=== PATIENT | female | born 1995 | race Hispanic/Latino ===

== ENCOUNTER 2020-12-13 10:36 | Outpatient (CLI) | payer OTHER | END 2020-12-13 10:37 | disposition home or self-care (01) | LOC: CSHULT 10:36 | PROVIDERS: ATTEND Family Medicine | DX: Z34.82 Encounter for supervision of other normal pregnancy, second trimester (principal) | CPT/HCPCS: 76805 ==

== ENCOUNTER 2021-04-25 17:56 | Inpatient (IN) | payer MEDICAID, OTHER, SELFPAY ==
[2021-04-25 18:28] VITALS: BMI 26.2
[2021-04-25] MEDS ORDERED: hydrALAZINE 20 MG/ML VIAL SLOW IVP PRN (19:06)
[2021-04-25] MEDS ORDERED: Ibuprofen 800 MG TAB PO PRN (19:06)
[2021-04-25] MEDS ORDERED: Butorphanol Tartrate 1 MG/ML VIAL SLOW IVP PRN (19:06)
[2021-04-25] MEDS ORDERED: Promethazine HCl 25 MG/ML VIAL IM PRN (19:06)
[2021-04-25] MEDS ORDERED: Carboprost 250 MCG/ML AMP IM PRN (19:06)
[2021-04-25] MEDS ORDERED: HYDROcodone/Acetaminophen 5/325 mg Tablet PO PRN ×2 (19:06)
[2021-04-25] MEDS ORDERED: Ondansetron PF 4 MG/2 ML Vial IVP PRN (19:06)
[2021-04-25] MEDS ORDERED: Misoprostol 200 MCG TAB PR PRN (19:06)
[2021-04-25] MEDS ORDERED: Diphenoxylate HCl/Atropine Tablet PO PRN ×2 (19:06)
[2021-04-25] MEDS ORDERED: Acetaminophen 500 MG TAB PO PRN (19:06)
[2021-04-25] MEDS ORDERED: Lidocaine 1% (PF) 30 ML VIAL SC PRN (19:06)
[2021-04-25] MEDS ORDERED: Methylergonovine 0.2 MG/ML VIAL IM PRN (19:06)
[2021-04-25] MEDS ORDERED: Lactated Ringer's 1,000 ML IV SCH (19:15)
[2021-04-25] MEDS ORDERED: NS w/ Oxytocin 30 units 500 ML ONE (19:34)
[2021-04-25] MEDS ORDERED: Fentanyl 2 mcg/Bup 0.1% Cadd 0 ML ONE (20:12)
[2021-04-25 20:20] LABS: Hemoglobin 12.6 g/dL (12.0-15.5); Mean Corpuscular HGB CONC 31.7 g/dL (32.0-36.0); Mean Corpuscular Hemoglobin 27.5 pg (27.0-33.0); Mean Corpuscular Volume 86.5 fl (81.6-98.3); Mean Platelet Volume 11.4 fl (7.4-10.4); Platelet Count 222 10x3/uL (150-450); RBC Distribution Width 13.6 % (11.5-14.5); Red Blood Cell (RBC) Count 4.59 10x6/uL (3.90-5.03); White Blood Cell (WBC) Count 12.6 10x3/uL (3.5-10.5)
[2021-04-25] MEDS ORDERED: Misoprostol 200 MCG TAB ONE (20:20)
[2021-04-25] MEDS ORDERED: Methylergonovine 0.2 MG/ML VIAL ONE (20:20)
[2021-04-25] MEDS ORDERED: Lidocaine 1% (PF) 30 ML VIAL ONE (20:20)
[2021-04-25] MEDS: NS w/ Oxytocin 30 units 500 ML IV SCH ×2 (20:32→22:38)
[2021-04-25 20:54] LABS: Hep B Surf Ag Non-Reactive S/CO (NonReactive); Syphilis Antibody Nonreactive (Nonreactive); Syphilis Antibody Index 0.03 S/CO (<1.00 Non-Reactive)
[2021-04-25 20:55] LABS: HBSAg Index 0.12 S/CO (0-0.99)
[2021-04-25 23:26] LABS: SARS-CoV-2 NAA Rapid Test Not Detected (NotDetected)
[2021-04-26] MEDS ORDERED: Milk Of Magnesia 30 ML UDCUP PO PRN (00:17)
[2021-04-26] MEDS: Ibuprofen 800 MG TAB PO SCH ×4 (00:17→21:28)
[2021-04-26] MEDS ORDERED: Lanolin Ointment 7 GM TUBE TOP PRN (00:17)
[2021-04-26] MEDS ORDERED: NS w/ Oxytocin 30 units 500 ML IV SCH (00:17)
[2021-04-26] MEDS ORDERED: Benzocaine-Menthol 82.5 ML CAN TOP PRN (00:17)
[2021-04-26] MEDS: Docusate Calcium (SURFAK) 240 MG CAP PO SCH ×3 (00:17→21:28)
[2021-04-26] MEDS ORDERED: HYDROcodone/Acetaminophen 5/325 mg Tablet PO PRN ×2 (00:17)
[2021-04-26] MEDS ORDERED: Boostrix 0.5 ML (Tdap) VIAL IM ONE (00:17)
[2021-04-26] MEDS ORDERED: hydrALAZINE 20 MG/ML VIAL SLOW IVP PRN (00:17)
[2021-04-26] MEDS ORDERED: Ondansetron PF 4 MG/2 ML Vial IVP PRN (00:17)
[2021-04-26] MEDS ORDERED: Promethazine HCl 25 MG/ML VIAL IM PRN (00:17)
[2021-04-26] MEDS ORDERED: Bisacodyl 10 MG SUPP PR PRN (00:17)
[2021-04-26] MEDS: Prenatal Vitamin 1 TAB PO SCH (08:40)
[2021-04-26] MEDS: Ferrous Sulfate 325 MG TAB PO SCH ×2 (08:57→21:29)
[2021-04-27] MEDS: Ibuprofen 800 MG TAB PO SCH (05:55)
[2021-04-27 08:06] VITALS: BP 111/70; TEMP 97.7
[2021-04-27] MEDS: Ferrous Sulfate 325 MG TAB PO SCH (08:15)
[2021-04-27] MEDS: Docusate Calcium (SURFAK) 240 MG CAP PO SCH (08:54)
[2021-04-27] MEDS: Prenatal Vitamin 1 TAB PO SCH (08:54)
== END 2021-04-27 13:20 | disposition home or self-care (01) | DRG 807 ==
LOC: CSHLD/OP 17:56 → CSHLD 20:44 → CSHPP 23:20
PROVIDERS: ADMIT Family Medicine; ATTEND Family Medicine
PROC: 10E0XZZ Delivery of Products of Conception, External Approach (ICD-10-PCS; principal; 2021-04-25)
DX: O80 Encounter for full-term uncomplicated delivery (principal); Z37.0 Single live birth; Z20.822 Contact with and (suspected) exposure to COVID-19; Z3A.39 39 weeks gestation of pregnancy
CPT/HCPCS: 36415; 85027; 86780; 86850; 86900; 86901; 87340; 99285; J2001; J2210; J2590; J7120; U0002

== ENCOUNTER 2024-02-04 19:15 | Inpatient (IN) | payer MEDICAID, OTHER ==
[2024-02-04] MEDS ORDERED: Methylergonovine 0.2 MG/ML VIAL IM PRN (20:21)
[2024-02-04] MEDS ORDERED: fentaNYL 50 mcg/mL 1 mL Vial SLOW IVP PRN (20:21)
[2024-02-04] MEDS ORDERED: Misoprostol 200 MCG TAB PR PRN (20:21)
[2024-02-04] MEDS ORDERED: Acetaminophen 500 MG TAB PO PRN (20:21)
[2024-02-04] MEDS ORDERED: HYDROcodone/Acetaminophen 5/325 mg Tablet PO PRN (20:21)
[2024-02-04] MEDS ORDERED: Ibuprofen 800 MG TAB PO PRN (20:21)
[2024-02-04] MEDS ORDERED: Lidocaine 1% (PF) 30 ML VIAL SC PRN (20:21)
[2024-02-04] MEDS ORDERED: Ondansetron PF 4 MG/2 ML Vial IVP PRN ×2 (20:21→21:22)
[2024-02-04] MEDS ORDERED: Promethazine HCl 25 MG/ML VIAL IM PRN ×2 (20:21→21:22)
[2024-02-04] MEDS ORDERED: Diphenoxylate HCl/Atropine Tablet PO PRN (20:21)
[2024-02-04] MEDS ORDERED: hydrALAZINE 20 MG/ML VIAL SLOW IVP PRN (20:21)
[2024-02-04] MEDS ORDERED: Carboprost 250 MCG/ML AMP IM PRN (20:21)
[2024-02-04] MEDS ORDERED: Tranexamic Acid 1,000 MG/10 ML VIAL IVP PRN (20:21)
[2024-02-04] MEDS ORDERED: Lactated Ringer's 1,000 ML IV SCH (20:30)
[2024-02-04] MEDS ORDERED: Oxytocin 30 units/NS 500 ML 500 ML IV SCH ×2 (20:30)
[2024-02-04 20:34] VITALS: BMI 26.9
[2024-02-04 20:36] LABS: Hematocrit 36.3 % (34.9-44.5); Hemoglobin 11.7 g/dL (12.0-15.5); Mean Corpuscular HGB CONC 32.2 g/dL (32.0-36.0); Mean Corpuscular Hemoglobin 26.4 pg (27.0-33.0); Mean Corpuscular Volume 81.8 fL (81.6-98.3); Mean Platelet Volume 10.9 fL (7.4-10.4); Platelet Count 243 10x3/uL (150-450); RBC Distribution Width 14.7 % (11.5-14.5); Red Blood Cell (RBC) Count 4.44 10x6/uL (3.90-5.03); White Blood Cell (WBC) Count 9.7 10x3/uL (3.5-10.5)
[2024-02-04] MEDS: fentaNYL/Ropivacaine Epidural 100 ML ONE (21:10)
[2024-02-04] MEDS ORDERED: Acetaminophen 325 MG TAB PO PRN (21:22)
[2024-02-04] MEDS ORDERED: Lactated Ringer's 500 ML IV PRN (21:22)
[2024-02-04] MEDS ORDERED: ePHEDrine Sulfate 50 MG/10 ML VIAL SLOW IVP PRN (21:22)
[2024-02-04] MEDS ORDERED: Naloxone HCl 0.4 mg/ml Vial IVP PRN ×2 (21:22)
[2024-02-04] MEDS ORDERED: diphenhydrAMINE 50 MG/ML VIAL IVP PRN (21:22)
[2024-02-04] MEDS ORDERED: Moisturizing Cream (Eucerin) 113 GM JAR TOP PRN (21:22)
[2024-02-04] MEDS ORDERED: fentaNYL 2 mcg/Ropivacaine 0.2% Epidural 100 ML CADD EPIDURAL SCH (21:30)
[2024-02-04] MEDS ORDERED: Communication Order-Pharmacy FS SCH (21:30)
[2024-02-04] MEDS: Oxytocin 30 units/NS 500 ML 500 ML IV SCH (22:13)
[2024-02-04 22:49] LABS: Syphilis Antibody Nonreactive (Nonreactive); Syphilis Antibody Index 0.08 S/CO (<1.00 Non-Reactive)
[2024-02-04 22:50] LABS: HBsAg Index 0.19 S/CO (0-0.99); Hep B Surf Ag - L&D Non-Reactive S/CO (NonReactive)
[2024-02-05] MEDS ORDERED: Oxytocin 30 units/NS 500 ML 500 ML IV SCH (01:03)
[2024-02-05] MEDS ORDERED: hydrALAZINE 20 MG/ML VIAL SLOW IVP PRN (01:03)
[2024-02-05] MEDS ORDERED: Bisacodyl 10 MG SUPP PR PRN (01:03)
[2024-02-05] MEDS ORDERED: diphenhydrAMINE 25 MG CAP PO PRN (01:03)
[2024-02-05] MEDS ORDERED: Ondansetron PF 4 MG/2 ML Vial IVP PRN (01:03)
[2024-02-05] MEDS ORDERED: HYDROcodone/Acetaminophen 5/325 mg Tablet PO PRN (01:03)
[2024-02-05] MEDS ORDERED: Promethazine HCl 25 MG/ML VIAL IM PRN (01:03)
[2024-02-05] MEDS ORDERED: Benzocaine-Menthol 82.5 ML CAN TOP PRN (01:03)
[2024-02-05] MEDS ORDERED: Milk Of Magnesia 30 ML UDCUP PO PRN (01:03)
[2024-02-05] MEDS ORDERED: Lanolin Ointment 7 GM TUBE TOP PRN (01:03)
[2024-02-05] MEDS: Ibuprofen 800 MG TAB PO SCH (02:16)
[2024-02-05] MEDS: Boostrix 0.5 ML (Tdap) VIAL (>/=7 yrs of age) IM ONE (03:33)
[2024-02-05] MEDS ORDERED: Ibuprofen 800 MG TAB PO SCH (06:00)
[2024-02-05] MEDS: Prenatal Vitamin 1 TAB PO SCH (08:35)
[2024-02-05] MEDS: Ferrous Sulfate 325 MG TAB PO SCH (08:35)
[2024-02-05] MEDS: Docusate 100 MG CAP PO SCH (08:35)
[2024-02-06 08:02] VITALS: BP 115/67; TEMP 97.7
== END 2024-02-06 12:40 | disposition home or self-care (01) | DRG 807 ==
LOC: CSHLD/OP 19:15 → CSHLD 20:12 → CSHPP 02-05 02:45
PROVIDERS: ADMIT Family Medicine; ATTEND Family Medicine
PROC: 10E0XZZ Delivery of Products of Conception, External Approach (ICD-10-PCS; principal; 2024-02-05)
PROC: 0KQM0ZZ Repair Perineum Muscle, Open Approach (ICD-10-PCS; 2024-02-05)
DX: O42.02 Full-term premature rupture of membranes, onset of labor within 24 hours of rupture (principal); Z37.0 Single live birth; Z3A.39 39 weeks gestation of pregnancy; O70.1 Second degree perineal laceration during delivery; O69.81X0 Labor and delivery complicated by cord around neck, without compression, not applicable or unspecified
CPT/HCPCS: 51702; 85027; 86780; 86850; 86900; 86901; 87340; 99285; J2590